=== PATIENT | male | born 1995 | race Caucasian/White ===

== ENCOUNTER 2022-11-25 03:53 | Emergency (ER) | payer OTHER ==
[2022-11-25 04:05] VITALS: BP 109/76; PULSE 105; RESP 18; TEMP 98.3; BMI 27.0
[2022-11-25] MEDS ORDERED: IBUPROFEN 400 MG TABLET (FP) PO ONE ×2 (04:22→04:25)
== END 2022-11-25 06:45 | disposition home or self-care (01) ==
LOC: JER 03:53
DX: T59.811A Toxic effect of smoke, accidental (unintentional), initial encounter (principal); J70.5 Respiratory conditions due to smoke inhalation; M25.562 Pain in left knee; X58.XXXA Exposure to other specified factors, initial encounter; Y99.0 Civilian activity done for income or pay
CPT/HCPCS: 73562-TC-LT-FY; 82375; 93005; 93010; 99285-25